=== PATIENT | male | born 1950 | race Caucasian/White ===

== ENCOUNTER → 2016-09-16 | Day surgery (SDC) | payer MEDICARE ==
[~2016-09-16] MED LIST: BUPIVACAINE/EPINEPHRINE 0.5% PF 30 ML VIAL ONE; KETOROLAC TROMETHAMINE 30 MG/ML (IVP) VIAL IV PUSH ONE; LACTATED RINGER'S 1000 ML INJ 1,000 ML ONE; MIDAZOLAM HCL 2 MG/2 ML VIAL ONE; ONDANSETRON HCL 4 MG/2 ML VIAL IV PUSH ONE; PROPOFOL 200 MG/20 ML AMP IV ONE; ceFAZolin 2 GM PREMIX 50 ML ONE; oxyCODONE/ACETAMINOPHEN 5 MG/325 MG TAB ONE
--- NOTE | 2016-09-19 19:26 | MP ---
cc: LORNA GARDNER M.D. DATE OF SURGERY: 09/16/2016 PREOPERATIVE DIAGNOSIS: 1. Right knee posterior horn medial meniscus complex tear. 2. Left knee painful retained internal fixation. POSTOPERATIVE DIAGNOSIS: 1. Right knee posterior horn medial meniscus complex tear. 2. Left knee painful retained internal fixation. OPERATIVE PROCEDURE PERFORMED: 1. Right knee arthroscopic partial medial meniscectomy. 2. Left knee exploration and removal of ACL interference screw and removal of bony overgrowth of proximal tibia. SURGEON: Lorna Gardner M.D. RIVET TESTER SURGEON: None. ANESTHESIA: General. COMPLICATIONS: None known. INDICATIONS FOR THE PROCEDURE: Bradley Hawkins is an adult male with persistent medial-sided knee pain. He does have some changes of arthritis particularly about the patellofemoral joint but his pain is primarily in the medial joint and he has some unstable tear on MRI. He is indicated for arthroscopic surgery for the right knee. He also has chronic pain about a prominent area about the proximal knee medial tibia where he had prior ACL surgery and he has an ACL interference screw and some bone overgrowth in this location. He is indicated for surgery in this location as well for screw removal and bony debridement. Risks and benefits were thoroughly discussed. No guarantees were offered. DESCRIPTION OF THE PROCEDURE IN DETAIL: The patient WAS brought to the operating room and placed under general anesthetic. Both lower extremities were prepped and draped in the usual sterile fashion. IV antibiotics were given. Time-out was completed. We proceeded with a knee arthroscopy on the right knee first and proceeded with an inferolateral portal with Marcaine and infused the knee with saline and proceeded to evaluate the patellofemoral joint where he had grade 4 chondromalacia noted and a fluoroscopic photograph was taken here. We visualized the ACL which appeared to have a normal lateral compartment, healthy-appearing articular cartilage and some minimal fraying on the inner edge of the meniscus, not grossly unstable. The medial compartment showed unstable tear involving the superior surface of the posterior horn of the medial meniscus with a flap of meniscus flipped anterior and superior along the medial joint line and a fragment of meniscus flipped into the notch. We proceeded with arthroscopic partial medial meniscectomy using a combination of basket forceps and arthroscopic shaver. A small amount of bleeding in the notch and we used electrocautery in this location. Chondroplasty of the medial femoral condyle. Final photograph was taken here. Final probing of the meniscus was performed. We moved back into the patellofemoral joint. There was a minimal fraying but not grossly unstable. Two-thirds of the undersurface of the patella was grade 3 to grade 4 chondromalacia and the anterior surface of the trochlear notch also had a matching grade 4 chondromalacia. Final photographs were taken. The arthroscopic equipment was removed. Steri-Strips were used to close. Sterile dressing and Sean wrap applied. Attention was drawn to the left knee. The prominent area anterior and medial was identified and a longitudinal incision was made and meticulous hemostasis was obtained. We came down to some thickened scar tissue about a prominent interference screw and we resected the scar tissue and then we were able to grasp the screw with the needle route driver salesperson and back it out and then remove additional scar tissue and then identified the bony overgrowth at the outlet of the tibial tunnel and we used a rongeur to trim this back and then meticulous hemostasis. We did do some subperiosteal dissection and now we closed the subperiosteal dissection back over. We did irrigate out with copious amounts of irrigation and then proceeded to close with absorbable sutures and Steri-Strips on the skin. Sterile dressing was applied. Sean wrap applied. The patient was awoken and returned to the recovery room in stable condition. MD JANA Montana/CAROL /1:13 PM /7:16 PM
== END | disposition home or self-care (01) ==
LOC: ESDC 09:04
PROVIDERS: ATTEND Orthopaedic Surgery Sports Medicine
DX: S83.231A Complex tear of medial meniscus, current injury, right knee, initial encounter (principal); T84.84XA Pain due to internal orthopedic prosthetic devices, implants and grafts, initial encounter
CPT/HCPCS: 01400; 20680; 29881; J0690; J1885; J2250; J2405; J3010; J7120